=== PATIENT | male | born 1985 | race Hispanic/Latino ===

== ENCOUNTER 2018-11-08 09:18 | Emergency (ER) | payer BC ==
[2018-11-08] MEDS ORDERED: ONDANSETRON 4 MG/2 ML VIAL ONE (10:15)
[2018-11-08] MEDS ORDERED: NA CHLORIDE 0.9% 1,000 ML ONE (10:15)
[2018-11-08 10:42] LABS: Absolute Lymphocytes (CBC) 1.1 K/uL (0.7-4.9); Absolute Monocytes 0.5 K/uL (0.1-1.3); Absolute Neutrophil 2.6 K/uL (1.8-8.0); Basophils % 0.4 % (0-1.3); Eosinophils % 3.9 % (0-4.4); Hematocrit 47.8 % (39.6-49.0); Lymphocytes % 25.6 % (15.3-44.8); MPV 9.6 fL (7.6-11.3); Monocytes % 11.7 % (3.3-12.3); RBC Red Blood Cell Count 5.48 M/uL (4.33-5.43)
[2018-11-08 10:54] LABS: Urine Blood NEGATIVE (NEG); Urine Glucose NEGATIVE (NEG); Urine Protein TRACE (NEG); Urine pH 5.5 (5.0-7.0)
[2018-11-08 11:02] LABS: Albumin 3.9 g/dL (3.4-5.0); Bilirubin Direct 0.2 mg/dL (0-0.2); Bilirubin Total 1.1 mg/dL (0.2-1.0); Potassium 3.6 mmol/L (3.5-5.1)
--- NOTE | 2018-11-08 12:04 | RAD REPORT ---
EXAM DESCRIPTION: CT - Abdomen Pelvis W Contrast - 11/08/2018 11:42 am CLINICAL HISTORY: Abdominal pain. Vomiting and diarrhea COMPARISON: None. TECHNIQUE: Computed axial tomography of the abdomen and pelvis was obtained. 100 cc Isovue-300 is ad ministered intravenously. Oral contrast was given. All CT scans are performed using dose optimization technique as appropriate and may include automated exposure control or mA/KV adjustment according to patient size. FINDINGS: Fatty liver Spleen, pancreas, adrenals and kidneys appear unremarkable. The appendix is normal caliber. There is no evidence of diverticulitis Wall of the distal rectum appears thickened IMPRESSION: Apparent thickening of the wall of the distal rectum may be secondary to incomplete dist ention or inflammation
--- NOTE | 2018-11-08 13:05 | ER ---
Nurse's Notes [facility] Name: Nii Werner Age: 33 yrs Sex: Male : 1985 Arrival Date: 11/08/2018 Time: 09:24 Bed 18 Private MD: Zac Nuñez Diagnosis: Lower abdominal pain, unspecified;Proctitis Presentation: 11/08 09:31 Presenting complaint: Patient states: abd cramping, N/V/D and fever that began ss yesterday. Transition of care: patient was not received from another setting of care. Onset of symptoms was November 07, 2018. Risk Assessment: Do you want to hurt yourself or someone else? Patient reports no desire to harm self or others. Initial Sepsis Screen: Does the patient meet any 2 criteria? No. Patient's initial sepsis screen is negative. Does the patient have a suspected source of infection? No. Patient's initial sepsis screen is negative. Care prior to arrival: None. 09:31 Method Of Arrival: Ambulatory ss 09:31 Acuity: MIHIR 3 ss Historical: - Allergies: 09:33 No Known Allergies; ss - Home Meds: 09:33 None [Active]; ss - PMHx: 09:33 None; ss - PSHx: 09:33 None; ss - Immunization history:: Adult Immunizations up to date. - Social history:: Smoking status: Patient uses tobacco products, 1/2 per month. - Ebola Screening: : Patient denies exposure to infectious person Patient denies travel to an Ebola-affected area in the 21 days before illness onset. Screenin:35 Abuse screen: Denies threats or abuse. Nutritional screening: No deficits noted. em Tuberculosis screening: No symptoms or risk factors identified. Fall Risk None identified. Assessment: 10:15 Reassessment: Pt finished CT oral contrast, CT notified . aa5 10:35 General: Appears in no apparent distress. comfortable, Behavior is calm, cooperative, em Reports fever for 1-2 days. Pain: Complains of pain in left lower quadrant. Neuro: Level of Consciousness is awake, alert, obeys commands, Oriented to person, place, time, situation. Cardiovascular: Capillary refill < 3 seconds Patient's skin is warm and dry. Respiratory: Airway is patent Respiratory effort is even, unlabored, Respiratory pattern is regular. GI: Abdomen is flat, Bowel sounds present X 4 quads. Abd is soft and non tender X 4 quads. Reports diarrhea, nausea. : Denies burning with urination. Derm: Skin is intact, is healthy with good turgor, Skin is pink, warm \T\ dry. Musculoskeletal: Capillary refill < 3 seconds, Range of motion: intact in all extremities. 10:38 Reassessment: currently denies nausea, request not to be medicated at this time, em provider notified. 11:34 Reassessment: Patient appears in no apparent distress at this time. Patient and/or em family updated on plan of care and expected duration. Pain level reassessed. Patient is alert, oriented x 3, equal unlabored respirations, skin warm/dry/pink. 11:38 Reassessment: wheeled to CT via wheelchair. em 12:24 Reassessment: Patient appears in no apparent distress at this time. Patient and/or em family updated on plan of care and expected duration. Pain level reassessed. Patient is alert, oriented x 3, equal unlabored respirations, skin warm/dry/pink. Patient states feeling better. Patient states symptoms have improved. 13:26 Reassessment: Patient appears in no apparent distress at this time. Patient and/or em family updated on plan of care and expected duration. Pain level reassessed. Patient is alert, oriented x 3, equal unlabored respirations, skin warm/dry/pink. Patient states symptoms have improved. Vital Signs: 09:33 BP 138 / 78; Pulse 71; Resp 16; Temp 97.8(O); Pulse Ox 98% on R/A; Weight 95.25 kg; ss Height 5 ft. 6 in. (167.64 cm); Pain 3/10; 10:48 BP 121 / 78; Pulse 65; Resp 18; Pulse Ox 99% on R/A; Pain 2/10; em 09:33 Body Mass Index 33.89 (95.25 kg, 167.64 cm) ED Course: 09:24 Patient arrived in ED. mr 09:24 Zac Nuñez MD is Private Physician. mr 09:32 Triage completed. ss 09:33 Arm band placed on left wrist. ss 09:35 Nasim Bauer PA is PHCP. cp 09:35 Jim Moyer MD is Attending Physician. cp 09:57 VillalbaEzequiel, TARAN is Primary Nurse. em 10:21 Initial lab(s) drawn, by me, sent to lab. Urine collected: clean catch specimen, [place] dh3 colored. Inserted saline lock: 20 gauge in right antecubital area, using aseptic technique. Blood collected. 10:25 Patient has correct armband on for positive identification. Bed in low position. Call em light in reach. Adult w/ patient. Pulse ox on. NIBP on. 11:40 CT completed. Patient tolerated procedure well. Patient moved to CT via wheelchair. [email or web address] Patient moved back from CT. 11:43 CT Abd/Pelvis - PO and IV Contrast In Process Unspecified. EDFL 13:03 Tod Estrella MD is Referral Physician. cp 13:25 No provider procedures requiring assistance completed. IV discontinued, intact, em bleeding controlled, No redness/swelling at site. Pressure dressing applied. Administered Medications: 10:38 Drug: NS 0.9% 1000 ml Route: IV; Rate: 1 bolus; Site: right antecubital; em 13:26 Follow up: IV Status: Completed infusion; IV Intake: 1000ml em 10:44 Not Given (Patient Refused): Zofran 4 mg IVP once; over 2 minutes em Intake: 13:26 IV: 1000ml; Total: 1000ml. em Outcome: 13:04 Discharge ordered by . cp 13:25 Discharged to home ambulatory, with family. em 13:25 Condition: stable 13:25 Discharge instructions given to patient, family, Instructed on discharge instructions, follow up and referral plans. medication usage, Demonstrated understanding of instructions, follow-up care, medications, Prescriptions given X 4. 13:26 Patient left the ED. em Signatures: Dispatcher [employer] [facility] Jay Jay Ezequiel Lew, RIGGING SLINGER RIGGING SLINGER em Nieves Romero RN RN aa5 Ada Bond RN RN ss Page, Corey, PA PA Rita Holman 3 Naheed [email or web address] Corrections: (The following items were deleted from the chart) 09:32 09:31 Presenting complaint: Patient states: abd cramping, N/V/D that began yesterday. ssss
--- NOTE | 2018-11-08 13:05 | EDPHYS ---
Physician Documentation [facility] Name: Nii Werner Age: 33 yrs Sex: Male : 1985 Arrival Date: 11/08/2018 Time: 09:24 Bed 18 Private MD: Zac Nuñez ED Physician Jim Moyer HPI: 11/08 09:50 This 33 yrs old Male presents to ER via Ambulatory with complaints of cp Abdominal Pain, Vomiting/Diarrhea. 09:50 The patient presents with abdominal pain in the left lower quadrant. cp 09:50 Onset: The symptoms/episode began/occurred yesterday. cp 09:50 The symptoms do not radiate. Associated signs and symptoms: Pertinent positives: cp nausea, vomiting, and diarrhea, fever, Pertinent negatives: blood in stools, chest pain, constipation, hematuria, testicular pain. The symptoms are described as waxing/waning. Modifying factors: the symptoms are aggravated by pressure. Severity of pain: in the emergency department the pain has improved moderately. Patient reports history of intermittent LLQ abdominal pain and blood in stools over the past several months. Historical: - Allergies: 09:33 No Known Allergies; ss - Home Meds: 09:33 None [Active]; ss - PMHx: 09:33 None; ss - PSHx: 09:33 None; ss - Immunization history:: Adult Immunizations up to date. - Social history:: Smoking status: Patient uses tobacco products, 1/2 per month. - Ebola Screening: : Patient denies exposure to infectious person Patient denies travel to an Ebola-affected area in the 21 days before illness onset. ROS: 10:00 Constitutional: Negative for body aches, chills, fever, poor PO intake. cp 10:00 Eyes: Negative for injury, pain, redness, and discharge. cp 10:00 ENT: Negative for drainage from ear(s), ear pain, sore throat, difficulty swallowing, difficulty handling secretions. 10:00 Cardiovascular: Negative for chest pain, palpitations. 10:00 Respiratory: Negative for cough, shortness of breath, wheezing. 10:00 Abdomen/GI: Positive for abdominal pain, nausea, diarrhea, of the left lower quadrant, Negative for constipation, anorexia, black/tarry stool, rectal bleeding. 10:00 Back: Negative for radiated pain. 10:00 : Negative for urinary symptoms, testicular pain 10:00 Skin: Negative for rash. 10:00 Neuro: Negative for altered mental status, headache, weakness. 10:00 All other systems are negative. Exam: 10:05 Constitutional: The patient appears in no acute distress, alert, awake, non-toxic, well cp developed, well nourished. 10:05 Head/Face: Normocephalic, atraumatic. cp 10:05 Eyes: Periorbital structures: appear normal, Conjunctiva: normal, no exudate, no cp injection, Sclera: no appreciated abnormality, Lids and lashes: appear normal, bilaterally. 10:05 ENT: External ear(s): are unremarkable, Nose: is normal, Mouth: Lips: moist, Oral mucosa: pink and intact, moist, Posterior pharynx: is normal, airway is patent, no erythema, no exudate. 10:05 Chest/axilla: Inspection: normal, Palpation: is normal, no crepitus, no tenderness. 10:05 Cardiovascular: Rate: normal, Rhythm: regular. 10:05 Respiratory: the patient does not display signs of respiratory distress, Respirations: normal, no use of accessory muscles, no retractions, no splinting, no tachypnea, labored breathing, is not present, Breath sounds: are clear throughout, no decreased breath sounds, no stridor, no wheezing. 10:05 Abdomen/GI: Inspection: abdomen appears normal, Bowel sounds: active, all quadrants, cp Palpation: soft, in all quadrants, mild abdominal tenderness, in the left lower quadrant, rebound tenderness, is not appreciated, voluntary guarding, is not appreciated, involuntary guarding, is not appreciated. 10:05 Back: pain, is absent, ROM is normal. 10:05 Skin: no rash present. Vital Signs: 09:33 BP 138 / 78; Pulse 71; Resp 16; Temp 97.8(O); Pulse Ox 98% on R/A; Weight 95.25 kg; ss Height 5 ft. 6 in. (167.64 cm); Pain 3/10; 10:48 BP 121 / 78; Pulse 65; Resp 18; Pulse Ox 99% on R/A; Pain 2/10; em 09:33 Body Mass Index 33.89 (95.25 kg, 167.64 cm) ss MDM: 09:35 Patient medically screened. cp 10:00 Differential diagnosis: gastritis, GI Bleed, non-specific abd pain, Prostatitis, cp Ureterolithiasis, urinary tract infection, proctitis, colitis, diverticulitis. 13:02 Data reviewed: vital signs, nurses notes, lab test result(s), radiologic studies, CT cp scan. 13:02 Counseling: I had a detailed discussion with the patient and/or guardian regarding: the cp historical points, exam findings, and any diagnostic results supporting the discharge/admit diagnosis, lab results, radiology results, the need for outpatient follow up, a set off blocker, to return to the emergency department if symptoms worsen or persist or if there are any questions or concerns that arise at home. Response to treatment: the patient's symptoms have markedly improved after treatment, and as a result, I will discharge patient. Special discussion: Based on the patient's Hx, exam, and Dx evaluation, there is no indication for emergent surgery or inpatient Tx. It is understood by the patient/guardian that if the Sx's persist or worsen they need to return immediately for re-evaluation. ED course: VSS. Pain improved. Patient unable to provide stool sample. Will discharge to home with RXs for oral antibiotics and recommend GI f/u. 11/08 09:53 Order name: Basic Metabolic Panel; Complete Time: 11: cp 11/08 11:07 Interpretation: Normal except: GLUC 116; GFR 86. cp 11/08 09:53 Order name: CBC with Diff; Complete Time: 11: cp 11/08 11:07 Interpretation: Normal except: RBC 5.48. cp 11/08 09:53 Order name: Creatinine for Radiology; Complete Time: 11: cp 11/08 09:53 Order name: Hepatic Function; Complete Time: 11: cp 11/08 11:07 Interpretation: Normal except: AST 43; BILIT 1.1; GLOB 4.1; A/G 1.0. cp 11/08 09:53 Order name: Lipase; Complete Time: 11: cp 11/08 10:35 Order name: Urine Dipstick--Ancillary (enter results); Complete Time: 11:07 eb 11/08 09:53 Order name: CT Abd/Pelvis - PO and IV Contrast; Complete Time: 12:17 cp 11/08 09:53 Order name: IV Saline Lock; Complete Time: 10:25 cp 11/08 09:53 Order name: Labs collected and sent; Complete Time: 10:25 cp 11/08 09:53 Order name: Urine Dipstick-Ancillary (obtain specimen); Complete Time: 10:25 cp Administered Medications: 10:38 Drug: NS 0.9% 1000 ml Route: IV; Rate: 1 bolus; Site: right antecubital; em 13:26 Follow up: IV Status: Completed infusion; IV Intake: 1000ml em 10:44 Not Given (Patient Refused): Zofran 4 mg IVP once; over 2 minutes em Disposition: 11/09 11:40 Co-signature as Attending Physician, Jim Moyer MD. rn Disposition: 11/08/18 13:04 Discharged to Home. Impression: Lower abdominal pain, unspecified, Proctitis. - Condition is Stable. - Discharge Instructions: Abdominal Pain, Adult, Proctitis. - Prescriptions for Zofran 4 mg Oral Tablet - take 1 tablet by ORAL route every 12 hours As needed; 20 tablet. Cipro 500 mg Oral Tablet - take 1 tablet by ORAL route every 12 hours for 10 days; 20 tablet. Metronidazole 500 mg Oral Tablet - take 1 tablet by ORAL route every 8 hours; 30 tablet. Bentyl 20 mg Oral Tablet - take 1 tablet by ORAL route every 6 hours As needed; 20 tablet. - Work release form, Medication Reconciliation Form, Thank You Letter, Antibiotic Education, Prescription Opioid Use form. - Follow up: Tod Estrella MD; When: 1 week; Reason: Recheck today's complaints. - Problem is new. - Symptoms have improved. Signatures: Dispatcher [employer] [facility] Ezequiel Villalba, WEIGHT CLERK WEIGHT CLERK Jim Lui MD MD rn Smirch, Shelby, RN RN ss Page, Corey, PA PA cp Corrections: (The following items were deleted from the chart) 11/08 13:05 13:04 11/08/2018 13:04 Discharged to Home. Impression: Lower abdominal pain, cp unspecified. Condition is Stable. Forms are Medication Reconciliation Form, Thank You Letter, Antibiotic Education, Prescription Opioid Use. Follow up: Tod Estrella; When: 1 week; Reason: Recheck today's complaints. Problem is new. Symptoms have improved. cp 13:26 13:05 11/08/2018 13:04 Discharged to Home. Impression: Lower abdominal pain, em unspecified; Proctitis. Condition is Stable. Discharge Instructions: Abdominal Pain, Adult, Proctitis. Forms are Medication Reconciliation Form, Thank You Letter, Antibiotic Education, Prescription Opioid Use. Follow up: Tod Estrella; When: 1 week; Reason: Recheck today's complaints. Problem is new. Symptoms have improved. cp
== END 2018-11-08 13:26 | disposition home or self-care (01) ==
LOC: ER 09:18
DX: R10.32 Left lower quadrant pain (principal); K62.89 Other specified diseases of anus and rectum; R11.2 Nausea with vomiting, unspecified; R19.7 Diarrhea, unspecified; Z72.0 Tobacco use
CPT/HCPCS: 36415; 74177; 80048; 80076; 81003; 83690; 85025; 96360; 96361; 99284; J2405; J7030; Q9967